=== PATIENT | female | born 1985 | race Caucasian/White ===

== ENCOUNTER 2021-11-18 18:09 | Inpatient (IN) ==
[2021-11-18] MEDS ORDERED: Lactated Ringers 1000 ml BAG 1,000 ML IV ONE (19:18)
[2021-11-18] MEDS ORDERED: Buffered Lidocaine 1% SYRIN 1 ml INTRADERM ONE (19:18)
[2021-11-18] MEDS ORDERED: Dinoprostone 10 MG VAG.SUPP VAGINAL ONE (19:24)
[2021-11-18] MEDS ORDERED: Lactated Ringers 1000 ml BAG 1,000 ML IV SCH (20:00)
[2021-11-18 23:09] LABS: Urine Benzodiazepine Screen None Detected (None Detect); Urine Cannabinoids Screen None Detected (None Detect); Urine Opiates Screen None Detected (None Detect)
[2021-11-20] MEDS ORDERED: Dinoprostone 10 MG VAG.SUPP VAGINAL ONE (19:13)
[2021-11-21] MEDS ORDERED: Nalbuphine 10 MG/ML 1 ML VIAL IV PRN (03:27)
[2021-11-21] MEDS ORDERED: Promethazine INJ(RESTRICTED) 25 MG/ML 1 ml VIAL IV PRN (03:27)
[2021-11-21] MEDS ORDERED: Lidocaine 2% JELLY 6 ML TOPICAL ONE (10:10)
[2021-11-21] MEDS ORDERED: Oxytocin in LR 20 UNITS/1,000 ML BAG IVPB SCH (12:00)
[2021-11-21 12:29] LABS: Hematocrit 34 % (35-47); Hemoglobin 11.6 g/dL (12.0-16.0); Mean Corpuscular HGB Conc 34 g/dL (31-36); Mean Corpuscular Hemoglobin 32 pg (27-31); Mean Corpuscular Volume 94 fL (80-97); Mean Platelet Volume 9.9 fL (7.4-10.4); Platelet Count 132 10^3/uL (150-450); Red Blood Count 3.59 10^6 /uL (3.70-4.87); Red Cell Distribution Width 14 % (10-15); White Blood Count 12.8 10^3/uL (3.5-10.8)
[2021-11-21 12:30] LABS: ABS Lymphocytes 1.7 10^3/ul (1.0-4.8); ABS Monocytes 0.7 10^3/ul (0-0.8); ABS Neutrophils 10.3 10^3/ul (1.5-7.7); Eosinophil % 0.4 %; Lymphocyte % 13.5 %
[2021-11-21] MEDS ORDERED: OBEPIDURAL 250 ML EPIDURAL ONE (17:10)
[2021-11-21] MEDS ORDERED: Sodium Citrate/Citric Acid LIQ 15 ML UDC PO PRN (17:52)
[2021-11-21] MEDS ORDERED: Lactated Ringers 1000 ml BAG 1,000 ML IV ONE (17:52)
[2021-11-21] MEDS ORDERED: Phenylephrine 40 mcg/mL 10mL (400mcg) SYRINGE IV PUSH PRN ×2 (17:52)
[2021-11-21] MEDS ORDERED: Lactated Ringers 1000 ml BAG 500 ML IV PRN (17:52)
[2021-11-21] MEDS ORDERED: EPHEDrine (Pressors) 50 MG/ML VIAL IV PUSH PRN ×2 (17:52)
[2021-11-21] MEDS ORDERED: OBEPIDURAL 250 ML EPIDURAL SCH (18:00)
[2021-11-21] MEDS ORDERED: Lactated Ringers 1000 ml BAG 1,000 ML IV SCH ×2 (18:00)
[2021-11-21 19:40] LABS: Urine Appearance Cloudy; Urine Bilirubin Negative (Negative); Urine Blood 3+ (Negative); Urine Color Yellow; Urine Glucose Negative (Negative); Urine Ketones 1+ (Negative); Urine Nitrite Negative (Negative); Urine Protein 1+(30 mg/dL) (Negative); Urine Specific Gravity 1.016 (1.002-1.030); Urine Urobilinogen Negative (Negative)
[2021-11-21 19:44] LABS: Urine Bacteria Absent (Absent); Urine Red Blood Cell 3+(>10/hpf) (Absent); Urine Squamous Epithelial Cell Present (Absent); Urine White Blood Cell 1+(6-10/hpf) (Absent)
[2021-11-22] MEDS ORDERED: Lidocaine 1% VIAL 10 MG/ML VIAL ONE (11:21)
[2021-11-22] MEDS ORDERED: Glycerin ADULT 2.4 gm SUPP PR PRN (12:03)
[2021-11-22] MEDS ORDERED: Oxytocin in LR 20 UNITS/1,000 ML BAG IVPB SCH (13:00)
[2021-11-22] MEDS ORDERED: Lactated Ringers 1000 ml BAG 1,000 ML IV SCH (13:00)
[2021-11-22] MEDS: Dibucaine 1% OINT 28.35 GM TUBE PR PRN (18:26)
[2021-11-22] MEDS: Witch Hazel PAD JAR TOPICAL PRN (18:26)
[2021-11-23 07:28] LABS: ABS Eosinophils 0.1 10^3/ul (0-0.6); ABS Lymphocytes 1.5 10^3/ul (1.0-4.8); ABS Monocytes 0.6 10^3/ul (0-0.8); Eosinophil % 1.2 %; Hematocrit 24 % (35-47); Hemoglobin 8.4 g/dL (12.0-16.0); Lymphocyte % 15.8 %; Mean Corpuscular HGB Conc 35 g/dL (31-36); Mean Corpuscular Hemoglobin 33 pg (27-31); Mean Corpuscular Volume 94 fL (80-97); Mean Platelet Volume 9.2 fL (7.4-10.4); Platelet Count 118 10^3/uL (150-450); Red Blood Count 2.53 10^6 /uL (3.70-4.87); Red Cell Distribution Width 14 % (10-15); White Blood Count 9.2 10^3/uL (3.5-10.8)
[2021-11-24 08:40] VITALS: BP 124/71
[2021-11-24] MEDS: Dibucaine 1% OINT 28.35 GM TUBE PR PRN ×2 (08:41→14:54)
[2021-11-24] MEDS: Witch Hazel PAD JAR TOPICAL PRN ×2 (08:41→14:54)
[2021-11-24] MEDS ORDERED: Iron Sucrose 200 MG in NS 0.9% 100 ml BAG 100 ML IVPB ONE (14:00)
== END 2021-11-24 16:58 | disposition home or self-care (01) | DRG 768 ==
LOC: MCHOBOUT 18:09 → MCHOB 18:45
PROVIDERS: ADMIT Obstetrics & Gynecology; ATTEND Midwife